=== PATIENT | male | born 2005 | race African-American/Black ===

== ENCOUNTER 2025-01-28 12:02 | Emergency (ER) | payer SELFPAY ==
[~2025-01-28] VITALS: Ht 185.4 cm; Wt 72.0 kg
[2025-01-28 12:16] VITALS: O2SAT 99
[2025-01-28] MEDS: KETOROLAC 30MG/ML VIAL IM ONE (14:45)
[2025-01-28] MEDS ORDERED: TRAZ-252 MT (16:55)
[2025-01-28] MEDS ORDERED: IBUP-1455 MT (16:55)
[2025-01-28 17:05] VITALS: BP 120/74; PULSE 62; RESP 14; TEMP 36.9; O2SAT 100
== END 2025-01-28 17:25 | disposition home or self-care (01) ==
LOC: ER 12:02
DX: F07.81 Postconcussional syndrome (principal); R56.1 Post traumatic seizures; Z79.899 Other long term (current) drug therapy
CPT/HCPCS: 70450; 96372; 99285; J1885